=== PATIENT | male | born 1980 | race Caucasian/White ===

== ENCOUNTER 2018-12-02 16:05 | Emergency (ER) | payer OTHER ==
[~2018-12-02] VITALS: Ht 185.4 cm; Wt 92.0 kg
[2018-12-02 16:10] VITALS: BP 132/80
--- NOTE | 2018-12-02 16:20 | NUR ---
PT TO ROOM FROM LOBBY
== END 2018-12-02 16:45 | disposition home or self-care (01) ==
LOC: ED 16:39
DX: S39.012A Strain of muscle, fascia and tendon of lower back, initial encounter (principal); X58.XXXA Exposure to other specified factors, initial encounter; Y93.89 Activity, other specified; Y92.69 Other specified industrial and construction area as the place of occurrence of the external cause; Y99.0 Civilian activity done for income or pay
CPT/HCPCS: 99283